=== PATIENT | female | born 1930 | race Caucasian/White ===

== ENCOUNTER 2017-08-22 08:36 | Inpatient (IN) | payer OTHER ==
[2017-07-29 13:43] VITALS: Ht 160 cm; Wt 64.4 kg
--- NOTE | 2017-07-29 14:19 | PAT Medication Instructions ---
Service Date Jul 29, 2017. Current Home Medication List Acetaminophen (Tylenol), 325 MG PO PRN Aspirin (Aspirin Ec), 81 MG PO QAM Cholecalciferol (Vitamin D3), 4,000 UNITS PO QAM Medication Instructions For Your Scheduled Surgery - Hold the following medications the morning of surgery: Cholecalciferol (Vitamin D3), 4,000 UNITS PO QAM - Take the following medications the morning of surgery with a sip of water: Acetaminophen (Tylenol), 325 MG PO PRN (if needed, can be taken up to four hours before surgery) Aspirin (Aspirin Ec), 81 MG PO QAM - Take the following medications as scheduled the night before surgery: Acetaminophen (Tylenol), 325 MG PO PRN (if needed) If you have any questions please call us at [phone] or [phone] or [phone]
--- NOTE | 2017-07-29 15:29 | DIAGNOSTIC IMAGING REPORT ---
CHEST 2 VIEWS ROUTINE CLINICAL HISTORY: Preoperative chest COMPARISON STUDY: None FINDINGS: The heart is normal in size. There is no failure. There is no focal pulmonary consolidation. There are no pleural effusions. There is mild soft tissue prominence of the right paratracheal region. There is slight anterior bowing of the trachea. If prior radiographs are not available, then an enhanced CT scan of chest is recommended in follow-up to exclude a small mediastinal lesion. There is a calcification projected of the left scapula, possibly representing a calcified lymph node. [ IMPRESSION: 1. Mild soft tissue prominence of the superior mediastinum. An enhanced CT scan of the chest should be considered in follow-up, unless there are prior radiographs available to demonstrate stability. Electronically signed by: Hugo Abdullahi M.D. 07/29/2017 3:27 PM Dictated Date/Time: 07/29/2017 3:23 PM
[2017-07-29 16:01] LABS: BASO % 0.3 %; BASO ABS # 0.02 K/uL (0-0.2); EOS % 2.5 %; EOS ABS # 0.15 K/uL (0-0.5); HEMATOCRIT 41.1 % (37-47); HEMOGLOBIN 13.8 g/dL (12.0-16.0); IG# 0.01 K/uL (0.00-0.02); LYMPH % 22.8 %; LYMPH ABS # 1.39 K/uL (1.2-3.4); MEAN CELL VOLUME 95.4 fL (80-100); MEAN CORPUSCULAR HGB CONC 33.6 g/dl (32-36); MEAN PLATELET VOLUME 11.7 fL (7.4-10.4); MONO % 6.1 %; MONO ABS # 0.37 K/uL (0.11-0.59); NEUT % 68.1 %; NEUT ABS # 4.16 K/uL (1.4-6.5); PLATELET COUNT 183 K/uL (130-400); RED CELL DISTRIBUTION WIDTH CV 13.1 % (11.5-14.5); RED CELL DISTRIBUTION WIDTH SD 45.3 fL (36.4-46.3)
[2017-07-29 16:12] LABS: PTT PATIENT 23.6 SECONDS (21.0-31.0)
[2017-07-29 16:17] LABS: ALBUMIN 3.7 gm/dl (3.4-5.0); CALCIUM 9.3 mg/dl (8.5-10.1); CREATININE 1.22 mg/dl (0.60-1.20); POTASSIUM 4.3 mmol/L (3.5-5.1)
[2017-07-29 16:20] LABS: TOTAL PROTEIN 6.9 gm/dl (6.4-8.2)
--- NOTE | 2017-08-20 08:05 | History and Physical ---
History & Physical Date Aug 20, 2017. Chief Complaint LEFT HIP PAIN History of Present Illness The patient is a 87 year old female with complaints of left hip and groin pain for years. cant do adls and limping constantly. Uses a cane at times. Additional History Hepatic Disease: No Endocrine Disorder: No Kidney Disease: No Hypertension: No Heart Disease: No Bleeding Tendencies: No Infectious Diseases: No Allergies Coded Allergies: No Known Allergies (Unverified , 07/29/17) Home Medications Scheduled Acetaminophen (Tylenol), 325 MG PO PRN Aspirin (Aspirin Ec), 81 MG PO QAM Cholecalciferol (Vitamin D3), 4,000 UNITS PO QAM Physical Examination Skin: warm/dry, no rash Eyes: normal inspection, EOMI, sclerae normal ENT: normal ENT inspection, pharynx normal Head: normocephalic, atraumatic Neck: supple, no adenopathy, trachea midline Respiratory/Chest: lungs clear, normal breath sounds, no respiratory distress Cardiovascular: regular rate, rhythm, no edema, no murmur Abdomen / GI: normal bowel sounds, non tender Back: normal inspection Extremities: normal inspection, normal range of motion, + pertinent finding ( PAIN WITH ROM LEFT HIP) Neurologic/Psych: no motor/sensory deficits, alert, normal reflexes, oriented x 3 Diagnosis DJD LEFT HIP Plan of Treatment ADMIT, PLAN IS FOR LEFT [facility]. HOME PT AND ASA POST OP.
[~2017-08-22] VITALS: Ht 160 cm; Wt 64.4 kg
[2017-08-22] VITALS (9 sets, daily range): BP systolic 93–124; BP diastolic 52–69; PULSE 57–84; TEMP 36.4–36.7; O2SAT 95–100
[2017-08-22] MEDS: TRANEXAMIC ACID INJ 1,000 MG x 2 Bags IV SCH ×4 (06:30→11:16)
[~2017-08-22 08:36] MED LIST: ACET-1311 PO; ACETAMINOPHEN 500 MG TAB PO SCH; ASPI81TA28 PO; BUPIVACAINE 0.5 % 5 MG/1 ML PF 10ML VIAL ONE; CEFAZOLIN 2000MG IV PUSH 15 ML IV SCH; CHOL2000 PO; CeleBREX 200 MG CAP PO SCH; DEXAMETHASONE 4 MG TAB PO SCH; FAMOTIDINE 20 MG TAB PO SCH; LACTATED RINGER'S 1000ML 1,000 ML IV SCH; LACTATED RINGER'S 1000ML 500 ML IV SCH; METOCLOPRAMIDE HCL 10 MG TAB PO SCH; ROPIVACAINE 5MG/ML 30 ML 150 MG, BUPIVACAINE 0.5% MPF INJ 30 ML, EpINEphrine HCL INJ 0.... INFIL SCH; TRANEXAMIC ACID INJ 1,000 MG x 2 Bags IV SCH
[2017-08-22] MEDS ORDERED: CIPR1TAB11 PO (09:15)
--- NOTE | 2017-08-22 09:24 | History & Physical Bridge Note ---
H&P Re-Evaluation Bridge Note: I have examined the patient, reviewed the History & Physical and in the interval since the performance of the History & Physical I have noted the following changes of clinical significance: No changes noted
[2017-08-22] MEDS ORDERED: MIDAZOLAM HCL 1 MG/ML 2ML VIAL ONE (09:38)
[2017-08-22] MEDS ORDERED: ATROPINE SULFATE 0.1 MG/ML 5ML SYR IV PRN (10:30)
[2017-08-22] MEDS ORDERED: ONDANSETRON INJ 2 MG/ML 2 ML VIAL IV PRN ×2 (10:30→12:45)
[2017-08-22] MEDS ORDERED: FENTANYL CITRATE INJ 50 MCG/1 ML 2 ML VIAL IV PRN (10:30)
[2017-08-22] MEDS ORDERED: EpHEDrine SULFATE INJ 50 MG/ML AMP IV PRN (10:30)
[2017-08-22] MEDS ORDERED: BACITRACIN 50000 UNIT VIAL ONE (10:50)
[2017-08-22] MEDS ORDERED: POVIDONE-IODINE OP SOLN 30 ML BTL ONE (10:50)
[2017-08-22] MEDS ORDERED: PROPOFOL IV EMULSION 10 MG/ML 20 ML VIAL IV ONE (11:55)
[2017-08-22] MEDS ORDERED: LIDOCAINE HCL 2% 2 ML VIAL (20MG/ML) ONE (11:55)
[2017-08-22] MEDS ORDERED: PHENYLEPHRINE 100MCG/ML 5ML SYR ONE (11:59)
--- NOTE | 2017-08-22 12:41 | [facility] Operative Report ---
Operative Report Operative Date Aug 22, 2017. Pre-Operative Diagnosis Left Hip Degenerative Joint Disease Post-Operative Diagnosis Left Hip Degenerative Joint Disease Procedure(s) Performed Left Total Hip Arthroplasty- Uncemented Surgeon Dr. Guardado Buffing And Sueding Machine Operator Surgeon(s) Rupa Chapa PA-C Estimated Blood Loss 20 ml Specimens a. left femoral head Drains one Anesthesia Type MAC Spinal Regional Complication(s) none Disposition no Recovery Room / PACU Description of Procedure IMPLANTS USED: Dowling size 54 mm PSL MAX coated acetabular cup, a 36 mm X3 elevated liner, a #4 Accolade 2 stem with a 132 neck and a 36 mm -5 ceramic head in one acetabular screw. INDICATIONS: Mrs. Rodriges is a pleasant female who has unfortunately failed all forms of conservative measures. Therefore, they have has decided to undergo elective surgical intervention. All risks and benefits of the surgery were discussed with the patient and the family in entirety. PROCEDURE: The patient was brought to the operating room and properly identified by myself, anesthesia, and staff. Patient was given a spinal anesthetic and placed on the operating table with the left hip up. The hip was then prepped and draped in the standard orthopedic fashion. We made a standard posterolateral approach over the greater trochanteric area. We then dissected down to subcutaneous tissue until the fascia was identified. We incised the fascia in line with the skin incision. We then split the gluteus ginny muscles with finger dissection. We then put the Charnley retractor in place. We placed the retractor underneath the gluteus medius to expose the piriformis. The piriformis was then tagged with a tag suture and released from the insertion from the greater trochanteric area with the use of electrocautery. We then performed a T capsulotomy and the femoral head and neck were atraumatically dislocated. We then performed femoral neck osteotomy at the pre- template site. We removed the femoral head and neck without difficulty. We then placed the retractor around the acetabulum. We then began to ream the acetabulum to the appropriate size. We then impacted the cup into place and had a very good fixation within the pelvis. We then put the liner in place as well. Then using multiple size approaches from the Accolade 2 system a size #4 fit very nicely in the proximal femur. I then put trial components in place. WE had very good range of motion, excellent stability, and excellent leg length equality. We removed the trial components and irrigated the wound. We then impacted the components in place and irrigated the wound once more. We then closed the capsule and fascia with a 0 Vicryl suture, the deep dermis with 2-0 Vicryl suture, and finally the skin with a running 3-0 Vicryl subcuticular stitch. A sterile dressing was applied. The patient was taken to the recovery room in stable condition. Due to the complex nature of the procedure, the entire surgery was performed with the operational assistance of Rupa Chapa PA-C . The junior assistant manager was under direct supervision, was involved in the actual performance of all aspects of the surgical procedure including hemostasis, tissue retraction and incision, instrument management, patient positioning, and wound closure. I attest to the content of the Intraoperative Record and any orders documented therein. Any exceptions are noted below.
[2017-08-22] MEDS ORDERED: ZOLPIDEM TARTRATE 5 MG TAB PO PRN (12:45)
[2017-08-22] MEDS ORDERED: BISACODYL 10 MG SUPP PR PRN (12:45)
[2017-08-22] MEDS ORDERED: OXYCODONE HCL IR 5 MG TAB (IMMEDIATE RELEASE) PO PRN (12:45)
[2017-08-22] MEDS ORDERED: MAGNESIUM HYDROXIDE SUSP 30 ML UDC PO PRN (12:45)
[2017-08-22] MEDS ORDERED: ALUMINUM/MAGNESIUM/SIMETH (MAALOX MAX) 30 ML UDC PO PRN (12:45)
--- NOTE | 2017-08-22 13:24 | Anesthesiology Progress Note ---
Anesthesia Post Op Note Date & Time Aug 22, 2017 at 13:24 Vital Signs Pain Intensity: 0 Vital Signs Past 12 Hours Date Time Temp Pulse Resp B/P (MAP) Pulse Ox O2 Delivery O2 Flow Rate FiO2 08/22/17 13:10 70 15 105/57 100 Nasal Cannula 2 08/22/17 13:04 36.3 75 16 97/56 100 Nasal Cannula 2 08/22/17 09:20 36.7 84 18 124/69 99 Room Air Notes Mental Status: alert / awake / arousable, participated in evaluation Pt Amnestic to Procedure: Yes Nausea / Vomiting: adequately controlled Pain: adequately controlled Airway Patency, RR, SpO2: stable & adequate BP & HR: stable & adequate Hydration State: stable & adequate Anesthetic Complications: no major complications apparent
[2017-08-22] MEDS: ACETAMINOPHEN 500 MG TAB PO SCH ×2 (15:42→23:36)
[2017-08-22] MEDS ORDERED: NURSING VERBAL MED ORDER ONE ×2 (16:00→21:00)
[2017-08-22] MEDS: SODIUM CHLORIDE 0.9% 1000ML 1,000 ML IV SCH (18:29)
[2017-08-22] MEDS ORDERED: TRANEXAMIC ACID INJ 1,000 MG in SODIUM CHLORIDE 0.9% 100ML 100 ML IV SCH (19:00)
[2017-08-22] MEDS: CEFAZOLIN IV 2,000 MG in SYRINGE 0 ML IV SCH (20:44)
[2017-08-22] MEDS: ASPIRIN 81 MG ECTAB PO SCH (20:45)
[2017-08-22] MEDS: DOCUSATE SODIUM 100 MG CAP PO SCH (20:45)
[2017-08-23] MEDS: CEFAZOLIN IV 2,000 MG in SYRINGE 0 ML IV SCH (03:46)
[2017-08-23] MEDS: SODIUM CHLORIDE 0.9% 1000ML 1,000 ML IV SCH (03:47)
[2017-08-23 03:53] VITALS: BP 109/61; PULSE 71; TEMP 36.4; O2SAT 97
[2017-08-23] MEDS: ACETAMINOPHEN 500 MG TAB PO SCH ×2 (06:06→14:27)
[2017-08-23 07:02] LABS: HEMATOCRIT 33.8 % (37-47); HEMOGLOBIN 11.6 g/dL (12.0-16.0); IG# 0.05 K/uL (0.00-0.02); LYMPH % 5.2 %; LYMPH ABS # 0.63 K/uL (1.2-3.4); MEAN CELL VOLUME 91.6 fL (80-100); MEAN CORPUSCULAR HEMOGLOBIN 31.4 pg (25-34); MEAN CORPUSCULAR HGB CONC 34.3 g/dl (32-36); MEAN PLATELET VOLUME 11.5 fL (7.4-10.4); MONO % 6.4 %; MONO ABS # 0.78 K/uL (0.11-0.59); NEUT ABS # 10.76 K/uL (1.4-6.5); PLATELET COUNT 135 K/uL (130-400); RED CELL DISTRIBUTION WIDTH CV 12.8 % (11.5-14.5); RED CELL DISTRIBUTION WIDTH SD 43.3 fL (36.4-46.3); WHITE BLOOD COUNT 12.22 K/uL (4.8-10.8)
[2017-08-23] MEDS ORDERED: DEXAMETHASONE INJ 10 MG in SYRINGE 0 ML IV SCH (07:30)
[2017-08-23 07:43] VITALS: BP 123/69; PULSE 74; TEMP 36.6; O2SAT 99
[2017-08-23] MEDS: DOCUSATE SODIUM 100 MG CAP PO SCH (08:08)
[2017-08-23] MEDS: ASPIRIN 81 MG ECTAB PO SCH (08:08)
--- NOTE | 2017-08-23 08:17 | Clinical Documentation Query ---
CLINICAL DOCUMENTATION QUERY 87 yo female s/p left total hip arthroplasty has a UA micro positive for E. Coli. In your clinical opinion is this patient being managed for: ( ) Urinary tract infection ( ) Not Agree ( ) Other explanation of clinical findings (Please Explain) ( ) Unable to determine (Please Define) ( ) Need to Discuss The medical record reflects the following clinical findings, treatment, and risk factors. Clinical Indicators: As above Treatment: IV Cefazolin, UA micro, IV hydration Risk Factors: Age, female, s/p surgical intervention Please clarify and document your clinical opinion in the progress notes and discharge summary. Terms such as "probable", "suspected", "likely", "questionable", "possible", or "still to be ruled out" are acceptable. IF IN AGREEMENT, YOU MUST DOCUMENT ABOVE DIAGNOSTIC STATEMENT IN DAILY PROGRESS NOTES AND DISCHARGE SUMMARY. This document is not part of the patient's record. Thank You, Preeti Ferrari RN [phone]
--- NOTE | 2017-08-23 08:19 | Orthopedic Progress Note ---
Orthopedic Progress Note Date of Service Aug 23, 2017. Subjective Post OP Day: 1 Reports: feeling well, Denies: complaints Objective calves soft nontender, N/V intact, hip located, dressing C/D/I, A&O x3, toes mobile, hemovac drainage (50ml) Date Time Temp Pulse Resp B/P (MAP) Pulse Ox O2 Delivery O2 Flow Rate FiO2 08/23/17 07:43 36.6 74 16 123/69 (87) 99 Room Air 08/23/17 07:10 Room Air 08/23/17 03:53 36.4 71 16 109/61 (77) 97 Room Air 08/22/17 23:45 36.4 63 14 105/61 (76) 98 Room Air 08/22/17 23:43 Room Air 08/22/17 20:25 36.5 81 17 116/67 (83) 96 Room Air 08/22/17 18:59 36.7 08/22/17 17:00 36.7 73 16 101/56 (71) 95 Room Air 08/22/17 16:00 36.5 70 16 93/52 (66) 98 Nasal Cannula 1.0 08/22/17 15:35 Nasal Cannula 2.0 08/22/17 15:05 75 16 113/68 (83) 100 Nasal Cannula 2.0 08/22/17 14:32 57 16 119/60 (79) 100 2.0 08/22/17 14:00 63 16 115/69 (84) 100 Nasal Cannula 2.0 08/22/17 14:00 Nasal Cannula 2.0 08/22/17 14:00 Nasal Cannula 2.0 08/22/17 13:40 36.3 63 17 111/62 100 Nasal Cannula 2 08/22/17 13:30 67 15 111/59 100 Nasal Cannula 2 08/22/17 13:20 69 16 107/59 100 Nasal Cannula 2 08/22/17 13:10 70 15 105/57 100 Nasal Cannula 2 08/22/17 13:04 36.3 75 16 97/56 100 Nasal Cannula 2 08/22/17 09:20 36.7 84 18 124/69 99 Room Air Laboratory Results 24 Hours: Test 08/23/17 06:15 White Blood Count 12.22 K/uL Red Blood Count 3.69 M/uL Hemoglobin 11.6 g/dL Hematocrit 33.8 % Mean Corpuscular Volume 91.6 fL Mean Corpuscular Hemoglobin 31.4 pg Mean Corpuscular Hemoglobin Concent 34.3 g/dl Platelet Count 135 K/uL Mean Platelet Volume 11.5 fL Neutrophils (%) (Auto) 88.0 % Lymphocytes (%) (Auto) 5.2 % Monocytes (%) (Auto) 6.4 % Eosinophils (%) (Auto) 0.0 % Basophils (%) (Auto) 0.0 % Neutrophils # (Auto) 10.76 K/uL Lymphocytes # (Auto) 0.63 K/uL Monocytes # (Auto) 0.78 K/uL Eosinophils # (Auto) 0.00 K/uL Basophils # (Auto) 0.00 K/uL Assessment & Plan Assessment: POD 1 s/p Right [facility]O Plan: PT/OT Plan for HH Services Possible dc to home today Inhouse Planning Pain Management: PO Tylenol, Oxy IR DVT Prophylaxis: TEDs, SCDs, ASA Discharge Planning Discharge Planning: home with home health
--- NOTE | 2017-08-23 08:20 | Anesthesiology Progress Note ---
Anesthesia Post Op Note Date & Time Aug 23, 2017 at 08:19 Vital Signs Pain Intensity: 3.0 Vital Signs Past 12 Hours Date Time Temp Pulse Resp B/P (MAP) Pulse Ox O2 Delivery O2 Flow Rate FiO2 08/23/17 07:43 36.6 74 16 123/69 (87) 99 Room Air 08/23/17 07:10 Room Air 08/23/17 03:53 36.4 71 16 109/61 (77) 97 Room Air 08/22/17 23:45 36.4 63 14 105/61 (76) 98 Room Air 08/22/17 23:43 Room Air 08/22/17 20:25 36.5 81 17 116/67 (83) 96 Room Air Notes Mental Status: alert / awake / arousable, participated in evaluation Pt Amnestic to Procedure: Yes Nausea / Vomiting: adequately controlled Pain: adequately controlled Airway Patency, RR, SpO2: stable & adequate BP & HR: stable & adequate Hydration State: stable & adequate Neuraxial Anesthesia: was administered, sensory block resolved Anesthetic Complications: no major complications apparent
[2017-08-23] MEDS ORDERED: ACET-24 PO (08:24)
[2017-08-23] MEDS ORDERED: TRAM-10 PO (08:24)
[2017-08-23] MEDS ORDERED: ASPI81TA28 PO (08:24)
--- NOTE | 2017-08-23 08:26 | Discharge Instructions ---
Discharge Instructions Date of Service Aug 23, 2017. Admission Reason for Admission: Left Hip Osteoarthritis Discharge Discharge Diagnosis / Problem: Left Hip Osteoarthritis Discharge Goals Goal(s): Decrease discomfort, Improve function, Increase independence Activity Recommendations Activity Limitations: per Instructions/Follow-up section Weightbearing Status: Left weightbearing (as tolerated) . Instructions / Follow-Up Instructions / Follow-Up ACTIVITY RECOMMENDATIONS: SELF CARE INSTRUCTIONS AFTER TOTAL HIP REPLACEMENT Until the incision and soft tissues around your hip have healed, there is a possibility that the hip prosthesis could dislocate. A. Observe the following precautions to prevent dislocation: 1. Don't bend your hip greater than 90 degrees. 2. Avoid crossing your legs or ankles while standing or lying. 3. Sit with your feet placed 6 inches apart. 4. When sitting, keep your knees below your hips. Sit on a firm surface, avoid deep, soft chairs and couches. Use an elevated toilet seat in the bathroom. 5. Don't bend over at the waist. Use a long handled shoehorn and a sock aid to help you put on your shoes and socks. A toys and games hand finisher can help you orange picking supervisor objects that are too high or too low to reach. 6. Keep car riding to a minimum for at least one month after surgery. B. Your balance may be shaky for a while. Use crutches or a walker until directed by your doctor. C. Use hand rails when walking on stairs. D. Wear low heeled shoes with non-slip soles. E. Be sure that your floors are free of things that could trip you - throw rugs , electrical cords, small objects. Avoid wet and waxed floors, especially with crutches and canes. F. Try to walk several times a day with rest periods between. G. Continue with all the exercises taught to you in the hospital. Again, make walking a part of your daily routine. SPECIAL CARE INSTRUCTIONS: VERY IMPORTANT TO READ AND REVIEW A. You may still be at risk for phlebitis and blood clots. 1. Wear surgical stockings (TRAMAINE hose) for 2 weeks after surgery to improve circulation and reduce swelling. 2. Take Aspirin 81mg twice daily for 4 weeks or as directed by your doctor. This is your blood thinner. 3. High risk patients may be prescribed a stronger blood thinner if necessary. 4. If you are on Coumadin normally, your family doctor/armored car guard should monitor your blood work. Expect a phone call the day of or the day after bloodwork is drawn to adjust your dosage. B. You must take antibiotics before having dental work, bladder, bowel and other surgery. Your doctor will provide you with a permanent card to carry describing precautions. C. Call [facility] if you have a fever, redness or swelling around the incision, cloudy drainage from incision, or sudden increase in pain in your hip, not relieved by your regular pain medication. D. Please call the office at if you have any concerns or questions about your operation or recovery. * YOU MAY SHOWER, NO TUB BATHS UNTIL CLEARED BY YOUR DOCTOR. * WEAR TRAMAINE HOSE 20 HOURS PER DAY FOR 2 WEEKS. * YOU SHOULD USE A WALKER OR CRUTCHES FOR 2-4 WEEKS. THIS WILL HELP PREVENT STRAIN ON YOUR HIP MUSCLE AND ALLOW IT TO HEAL PROPERLY. YOU MAY WEAN TO A CANE TOLERATED. * MOST PATIENTS WILL HAVE HOME NURSING FOR THERAPY. IF YOU DECIDE TO DO OUTPATIENT PHYSICAL THERAPY, PLEASE SCHEDULE THIS 3 TIMES PER WEEK. * YOU MAY HAVE A LARGE, BAND-PRINCE LIKE DRESSING (SILVERON). THIS WILL REMAIN ON YOUR INCISION FOR 7 DAYS, THEN CAN BE REMOVED. IF INCISION IS LEAKING THROUGH DRESSING, PLEASE CALL THE OFFICE . FOLLOW UP VISIT: If appointment is not already scheduled: Please call [facility] to make a follow-up appointment for 2 weeks after your surgery at . Current Hospital Diet Patient's current hospital diet: Regular Diet Discharge Diet Recommended Diet: Regular Diet Procedures Procedures Performed: Left Total Hip Arthroplasty- Uncemented Pending Studies Studies pending at discharge: no Medical Emergencies . Who to Call and When: Medical Emergencies: If at any time you feel your situation is an emergency, please call [phone] immediately. . Non-Emergent Contact Non-Emergency issues call your: Surgeon Call Non-Emergent contact if: temperature is above 101.5, your pain is not controlled, your pain is worsening, wound has increased drainage, wound has increased redness . "Provider Documentation" section prepared by Keshawn De Luna. . [place] Drug Monitoring Program Search Results: patient reviewed within database, no issues identified
[2017-08-23] MEDS ORDERED: TRAMADOL HCL 50 MG TAB PO PRN (08:45)
[2017-08-23 12:58] VITALS: BP 132/65; PULSE 80; TEMP 36.5; O2SAT 98
[2017-08-23 13:00] VITALS: BP 132/65; PULSE 80; TEMP 36.5; O2SAT 98
== END 2017-08-23 15:40 | disposition home health service (06) | DRG 470 ==
LOC: C.ACU 08:36 → UNDOADMIN 09:00 → C.3E 09:00 → ENRESERV 13:31
PROVIDERS: ADMIT Orthopaedic Surgery; ATTEND Orthopaedic Surgery
PROC: 0SRB03A Replacement of Left Hip Joint with Ceramic Synthetic Substitute, Uncemented, Open Approach (ICD-10-PCS; principal; 2017-08-22 12:00)
DX: M16.12 Unilateral primary osteoarthritis, left hip (principal); M85.80 Other specified disorders of bone density and structure, unspecified site; Z79.82 Long term (current) use of aspirin